=== PATIENT | male | born 1990 | race Caucasian/White ===

== ENCOUNTER 2020-05-19 09:37 | Emergency (ER) | payer OTHER ==
--- NOTE | 2020-05-19 10:15 | NUR ---
CALLED AT [phone] NO RESPONSE
== END 2020-05-19 10:15 | disposition left against medical advice (07) ==
LOC: MED 09:37
DX: Z53.21 Procedure and treatment not carried out due to patient leaving prior to being seen by health care provider (principal)

== ENCOUNTER 2020-05-19 11:44 | Emergency (ER) | payer OTHER ==
[~2020-05-19] VITALS: Ht 182.9 cm; Wt 95.3 kg
[2020-05-19 11:45] VITALS: BP 135/84
--- NOTE | 2020-05-19 11:55 | NUR ---
dorothy OATES for prebook. pt denies medical complaints at this time.
[2020-05-19] MEDS ORDERED: LORazepam 1 MG TAB PO ONE (12:00)
[2020-05-19 13:01] VITALS: BP 135/84
--- NOTE | 2020-05-19 13:02 | NUR ---
PATIENT BIB [employer] [employer]. PATIENT EXAMINED BY DR. Stewart. PATIENT MEDICALLY CLEARED AND RELEASED IN CUSTODY IN STABLE CONDITION. ORIGINAL PRE-BOOK FORM GIVEN TO OFFICER Fanny.
== END 2020-05-19 13:02 ==
LOC: MED 11:44
DX: F15.10 Other stimulant abuse, uncomplicated (principal); Z02.89 Encounter for other administrative examinations; F17.200 Nicotine dependence, unspecified, uncomplicated
CPT/HCPCS: 93005; 99283